=== PATIENT | male | born 1990 | race African-American/Black ===

== ENCOUNTER 2017-09-19 09:11 | Emergency (ER) | payer MEDICAID ==
[~2017-09-19] VITALS: Ht 177.8 cm; Wt 75.0 kg
[2017-09-19 10:13] LABS: CLARITY URINE CLEAR (CLEAR); COLOR URINE YELLOW (YELLOW); GLUCOSE URINE NEGATIVE (NEGATIVE); KETONES URINE TRACE (NEGATIVE); LEUKOCYTE ESTERASE URINE 2+ (NEGATIVE); NITRITE URINE NEGATIVE (NEGATIVE); OCCULT BLOOD URINE TRACE (NEGATIVE); PROTEIN URINE NEGATIVE (NEGATIVE); SPECIFIC GRAVITY URINE 1.025 (1.005-1.030); UROBILINOGEN URINE 0.2 E.U./dL (0.2-1.0)
[2017-09-19] MEDS ORDERED: CEFTRIAXONE SODIUM 250 MG/VIAL IM ONE (11:00)
[2017-09-19] MEDS ORDERED: LIDOCAINE HCL/EPINEPHRINE 1%-EPI 1:100,000 20 ML VIAL INFIL ONE (11:00)
[2017-09-19] MEDS ORDERED: AZITHROMYCIN 500 MG TABLET PO ONE (11:00)
[2017-09-19] MEDS ORDERED: LIDOCAINE HCL 1% 20ML VIAL (Pyxis) INJ INFIL ONE (11:15)
[2017-09-19 12:47] VITALS: BP 111/72
[2017-09-22 13:12] LABS: CHLAMYDIA TRACHOMATIS NAA Negative (Negative); NEISSERIA GONORRHOEAE NAA Positive (Negative)
== END 2017-09-19 13:06 | disposition home or self-care (01) ==
LOC: ER 09:56
DX: N39.0 Urinary tract infection, site not specified (principal); Z20.2 Contact with and (suspected) exposure to infections with a predominantly sexual mode of transmission
CPT/HCPCS: 81001; 86592; 87086; 87491; 87591; 96372; 99284; J0696; J3490